=== PATIENT | female | born 1950 | race Caucasian/White ===

== ENCOUNTER 2018-12-27 20:25 | Emergency (ER) | payer OTHER ==
[~2018-12-27] VITALS: Ht 147.3 cm; Wt 59.0 kg
[2018-12-27 21:57] LABS: Hemoglobin 11.4 g/dL (12.2-16.2); Mean Corpuscular Hemoglobin 37.1 pg (28.0-32.0); Mean Corpuscular Volume 107.8 fL (80.0-100.0); White Blood Cell 5.2 10^3/uL (4.4-10.8)
[2018-12-27 22:00] LABS: Mean Corpuscular Hgb Conc. 34.5 g/dL (32.0-36.0); Platelet Count (auto) 203 10^3/uL (140-450); Red Blood Cells 3.06 10^6/uL (4.0-5.20); Red Cell Distribution Width 18.1 % (11.8-14.3)
[2018-12-27 22:06] LABS: Band Neutrophils % (manual) 0; Basophils % (manual) 0 (0.0-2.0); Metamyelocytes % 0; Myelocytes % 0; Promyelocytes % 0; Reactive Lymphocytes 0
[2018-12-27 22:07] LABS: Blast Cells 0
[2018-12-27] MEDS ORDERED: IBUPROFEN 600 MG TAB PO ONE ×2 (22:15→22:48)
[2018-12-27 22:17] LABS: Albumin 3.5 g/dL (3.4-5.0); BUN/Creatinine Ratio 20.5; Calcium 7.9 mg/dL (8.5-10.1); Potassium 3.5 mmol/L (3.5-5.1)
[2018-12-27 22:20] LABS: Bilirubin, Total 0.8 mg/dL (0.2-1.0)
[2018-12-27] MEDS ORDERED: SODIUM CHLORIDE 0.9% 2,000 ML IV ONE (22:30)
[2018-12-27 22:33] LABS: Lymphocytes % (manual) 4 (10.0-50.0); Monocytes % (manual) 4 (0-12)
[2018-12-27 22:34] LABS: Eosinophils % (manual) 23 (0-7)
[2018-12-28] MEDS ORDERED: HYDROcodone-ACET 10/325MG TAB PO ONE ×2 (00:15→05:00)
[2018-12-28] MEDS ORDERED: HYDROcodone-ACET 10/325MG TAB ONE ×2 (00:26)
[2018-12-28] MEDS ORDERED: GABAPENTIN 300 MG CAP PO ONE (02:00)
[2018-12-28 02:02] LABS: BUN/Creatinine Ratio 27.3; Calcium 6.5 mg/dL (8.5-10.1)
[2018-12-28 02:14] LABS: Potassium 2.7 mmol/L (3.5-5.1)
[2018-12-28] MEDS ORDERED: POTASSIUM CHL 20 Meq TABLET PO ONE ×2 (03:00→03:15)
[2018-12-28] MEDS: POTASSIUM CHL 20MEQ/100ML 100 ML IV SCH ×2 (03:02→06:30)
[2018-12-28 06:40] VITALS: BP 158/66
== END 2018-12-28 07:52 | disposition short-term general hospital (02) ==
LOC: ER 20:27 → EDBD 20:27 → ER 12-28 07:52
DX: E87.1 Hypo-osmolality and hyponatremia (principal); I10 Essential (primary) hypertension; R41.0 Disorientation, unspecified; Z87.891 Personal history of nicotine dependence
CPT/HCPCS: 36415; 70450; 80048; 80053; 85007; 85027; 96360; 96361; 99285; J3480; J7030